=== PATIENT | female | born 1985 | race Caucasian/White ===

== ENCOUNTER 2017-09-27 17:12 | Emergency (ER) | payer MEDICAID, OTHER ==
[2017-09-27] MEDS: IBUPROFEN 600 MG TAB PO (19:56)
== END 2017-09-27 20:00 | disposition home or self-care (01) ==
LOC: FTE 17:12
DX: S01.01XA Laceration without foreign body of scalp, initial encounter (principal); W20.8XXA Other cause of strike by thrown, projected or falling object, initial encounter; Y92.9 Unspecified place or not applicable
CPT/HCPCS: 12001; 99283-25